=== PATIENT | female | born 1980 | race Caucasian/White ===

== ENCOUNTER → 2020-03-09 08:02 | Outpatient (CLI) | payer BC, SELFPAY ==
--- NOTE | ~2020-03-09 | MMUS_ITS ---
EXAMINATION: MM diagnostic marisol RT w reinaldo, US breast RT complete HISTORY: Right breast lump TECHNIQUE: ML, MLO and cc full field and spot 3-D tomosynthesis images of the right breast were perfo rmed and synthetic 2-D images were generated. CAD analysis was submitted and interpreted. High resolu tion complete right breast ultrasound was performed. COMPARISON: None BREAST PARENCHYMAL COMPOSITION: The breasts are extremely dense, which lowers the sensitivity of mamm ography. FINDINGS: MAMMOGRAPHIC FINDINGS: Numerous microcalcifications are scattered throughout the breast parenchyma. No suspicious mass, arch itectural distortion, malignant calcification, skin thickening or retraction is detected. ULTRASOUND: There are multiple cysts scattered in the left breast. There is a complicated cyst with internal echo genicity but through transmission posterior enhancement at 9:00 7 cm from the nipple, measuring 8 x 9 .4 mm. The largest cyst measures approximately 6 x 13 mm, situated at 10:00 position 5 cm from nipple . There is a multilocular cyst with through transmission posterior enhancement at 10:00 3 cm from the n ipple, measuring 8 x 9.4 x 1.3 cm. No suspicious solid mass or shadowing is detected. Comparison with trace laryngeal IMPRESSION: 1. Multiple right breast cysts; no evidence of malignancy 2. Routine mammographic screening and possible ultrasound follow-up as clinically appropriate are rec ommended BI-RADS Category 2: Benign finding(s). Reviewed, dictated and finalized at location A. IMPRESSION: 1. Multiple right breast cysts; no evidence of malignancy 2. Routine mammographic screening and possible ultrasound follow-up as clinical ly appropriate are recommended BI-RADS Category 2: Benign finding(s).
== END ==
PROVIDERS: Visit Provider Obstetrics & Gynecology
DX: N63.10 Unspecified lump in the right breast, unspecified quadrant (principal)
CPT/HCPCS: 76641; 77061; 77065; G0279